=== PATIENT | male | born 1995 | race Caucasian/White ===

== ENCOUNTER 2018-07-04 09:38 | Emergency (ER) | payer SELFPAY ==
[~2018-07-04] VITALS: Ht 182.9 cm; Wt 75.0 kg
[~2018-07-04 09:38] MED LIST: NOCURR
[2018-07-04] MEDS ORDERED: IBUPROFEN 600 MG TABLET PO ONE (12:00)
[2018-07-04 12:45] VITALS: BP 120/75
== END 2018-07-04 12:50 | disposition home or self-care (01) ==
LOC: EMS 09:40
DX: S13.4XXA Sprain of ligaments of cervical spine, initial encounter (principal); V43.52XA Car driver injured in collision with other type car in traffic accident, initial encounter; Y93.89 Activity, other specified; Y92.488 Other paved roadways as the place of occurrence of the external cause; Y99.8 Other external cause status; S16.1XXA Strain of muscle, fascia and tendon at neck level, initial encounter